=== PATIENT | female | born 1960 | race African-American/Black ===

== ENCOUNTER 2020-06-21 11:05 | Emergency (ER) | payer OTHER, SELFPAY ==
[2020-06-21 11:07] VITALS: BP 131/77; PULSE 56; RESP 18; TEMP 36.6; O2SAT 99
--- NOTE | 2020-06-21 11:31 | CT_ITS ---
STUDY: CT ABDOMEN AND PELVIS WITH CONTRAST REASON FOR EXAM: Female, 60 years old. LT FLANK PAIN -- RECENT DX COVID--NO LONGER QUARANTENED RADIATION DOSAGE (If Supplied By Facility): CTDIvol = ( 17.80 ) mGy, DLP = ( 931.14 ) mGycm TECHNIQUE: Transaxial images were obtained from the dome of the diaphragm to the symphysis pubis without oral contrast. IV 100mL Isovue-300 was administered. Sagittal and coronal images were reconstructed. Individualized dose optimization techniques were used for this CT. COMPARISON: None. FINDINGS: Minimal degree of the dependent bibasilar atelectasis. The visualized portions of the heart are within normal limits. Findings suggestive of an 8.7 mm hemangioma in the inferior aspect of the right lobe of the liver. Normal gallbladder and extrahepatic biliary system. Normal spleen. Normal pancreas. Normal bilateral adrenal glands. Normal right kidney. Normal left kidney. Normal visualized stomach. Normal small intestine. Diffuse colonic diverticulosis. The appendix is visualized and appears normal. Normal abdominal aorta. Normal inferior vena cava. There is borderline retroperitoneal lymphadenopathy with enlarged nodes no greater than 10mm in the short axis diameter. Normal urinary bladder. There is absence of the uterus consistent with a prior hysterectomy. Small bilateral inguinal hernias containing fat. Normal osseous structures. CT/Abdomen/Pelvis W IV Cont ONLY IMPRESSION: Diffuse colonic diverticulosis. Electronically Signed: Ghanshyam Kimbrough, at 12:41 EST , Service support ,
--- NOTE | 2020-06-21 11:32 | ED.VIS.GEN ---
History of Present Illness Chief Complaint: Flank Pain Informant: Patient Narrative: Patient presents the emergency room for the evaluation of left flank pain. Symptoms began gradually on Wednesday. She notes frequent urination. No dysuria. She does note a history of kidney stones but 20 years ago. No fevers. No vomiting. She is unable to find a position of comfort. She denies any rashes in the area. She states her bowel movements have been regular. - Past Medical History (1) Hypertension Status: Chronic Past Medical History - Allergies and Home Meds Allergies/Adverse Reactions: Allergies No Known Allergies Allergy (Verified 06/21/20 11:53) Primary Care Physician: Hakeem Ramirez MD [NON-STAFF] - 3-5 Days Past Medical History: - - Hypertension Surgical History: hysterectomy Smoking Status: Never smoker Drugs: None - Family History Maternal Family History: Reports: Diabetes, Heart Disease, Hypertension Review of Systems General: Denies: Chills, Fever, Sweats Eyes: Denies: Visual changes - bilaterally, Diplopia ENT: Denies: Rhinorrhea, Sore throat Cardiovascular: Denies: Chest pain, Palpitations Respiratory: Denies: Dyspnea, Cough, Dyspnea on exertion Gastrointestinal: Denies: Abdominal pain, Nausea, Vomiting, Diarrhea, Melena, Hematochezia Genitourinary: Reports: Frequency. Denies: Dysuria, Hematuria Musculoskeletal: Reports: - - Left flank pain. Denies: Back pain, Extremity Pain Skin: Denies: Rash, Wounds Neurological: Denies: Headache, Weakness, Numbness Physical Exam Vital Signs/Narrative: Vital Signs Temp Pulse Resp BP Pulse Ox 06/21/20 11:07 97.8 F 56 L 18 131/77 H 99 Inital Vital Signs reviewed: Yes General: Well nourished, Well developed, No Acute Distress Head: Normocephalic, Atraumatic Eyes: Perrl, EOMI ENT: Moist mucous membranes, No rhinorrhea Neck: Supple, Nontender Cardiovascular: Regular rate, Regular rhythm, No murmurs Respiratory: No distress, CTA bilaterally, Chest nontender Abdomen: Soft, Nontender, Nondistended, Normal bowel sounds Back: CVA tenderness - Left sided Extremities: Nontender, No edema Skin: Normal color, No rash Neurological: Alert, Oriented x3, Cranial nerves II-XII grossly intact, Normal Strength, Normal Sensation Psychological: Normal affect, Normal Mood Diagnostic/Tx/Re-eval Laboratory Last Values WBC 7.4 K/mm3 (4.4-11.0) 06/21/20 11:40 RBC 5.99 M/mm3 (4.2-5.4) H 06/21/20 11:40 Hgb 15.2 g/dL (12.0-15.0) H 06/21/20 11:40 Hct 48.9 % (37-47) H 06/21/20 11:40 MCV 81.6 fL (81-99) 06/21/20 11:40 MCH 25.4 pg (27.0-32.0) L 06/21/20 11:40 MCHC 31.1 g/dL (32-36) L 06/21/20 11:40 RDW Std Deviation 42.1 fl (35.1-43.9) 06/21/20 11:40 RDW Coeff of Amelia 14.2 % (11.6-14.6) 06/21/20 11:40 Plt Count 257 K/mm3 (150-450) 06/21/20 11:40 MPV 10.7 fl (6.2-12.0) 06/21/20 11:40 Immature Gran % (Auto) 0.500 % (0.0-0.9) 06/21/20 11:40 Neut % (Auto) 39.7 % (47-70) L 06/21/20 11:40 Lymph % (Auto) 52.1 % (19-41) H 06/21/20 11:40 [place] % (Auto) 6.0 % (0-10) 06/21/20 11:40 Eos % (Auto) 1.2 % (0-5) 06/21/20 11:40 Baso % (Auto) 0.5 % (0-1) 06/21/20 11:40 Absolute Neuts (auto) 2.9 X10^3/uL (2.0-7.7) 06/21/20 11:40 Absolute Lymphs (auto) 3.85 X10^3/uL (0.83-4.51) 06/21/20 11:40 Nucleated RBC % 0 % (0-5) 06/21/20 11:40 Sodium 141 mmol/L (136-145) 06/21/20 11:40 Potassium 3.8 mmol/L (3.5-5.1) 06/21/20 11:40 Chloride 106 mmol/L (98-107) 06/21/20 11:40 Carbon Dioxide 31.0 mmol/L (21.0-32.0) 06/21/20 11:40 Anion Gap 4 (5-15) L 06/21/20 11:40 BUN 21 mg/dL (7-18) H 06/21/20 11:40 Creatinine 1.14 mg/dL (0.55-1.02) H 06/21/20 11:40 Estim Creat Clear Calc 44.75 ml/min 06/21/20 11:40 Est GFR (MDRD) Af Amer 62 mL/min (>60) 06/21/20 11:40 Est GFR (MDRD) Non-Af 52 mL/min (>60) L 06/21/20 11:40 BUN/Creatinine Ratio 18.4 RATIO (10-20) 06/21/20 11:40 Glucose 107 mg/dL (74-106) H 06/21/20 11:40 Calcium 9.4 mg/dL (8.5-10.1) 06/21/20 11:40 Total Bilirubin 0.30 mg/dL (0.20-1.00) 06/21/20 11:40 AST 19 U/L (15-37) 06/21/20 11:40 ALT 43 U/L (13-56) 06/21/20 11:40 Alkaline Phosphatase 100 U/L (45-117) 06/21/20 11:40 Total Protein 7.8 g/dL (6.4-8.2) 06/21/20 11:40 Albumin 3.9 g/dL (3.2-5.0) 06/21/20 11:40 Globulin 3.9 g/dL (2.2-4.2) 06/21/20 11:40 Albumin/Globulin Ratio 1.0 RATIO (0.9-2.4) 06/21/20 11:40 Urine Color Yellow (Yellow) 06/21/20 11:40 Urine Clarity Clear (Clear) 06/21/20 11:40 Urine pH 6.5 (5.0 - 8.0) 06/21/20 11:40 Ur Specific Rake 1.015 (1.002-1.030) 06/21/20 11:40 Urine Protein 15 mg/dl (Negative) H 06/21/20 11:40 Urine Glucose (UA) Normal mg/dl (Normal) 06/21/20 11:40 Urine Ketones 5 mg/dl (Negative) H 06/21/20 11:40 Urine Occult Blood Negative /ul (Negative) 06/21/20 11:40 Urine Nitrite Negative (Negative) 06/21/20 11:40 Urine Bilirubin Negative mg/dL (Negative) 06/21/20 11:40 Urine Urobilinogen 1 mg/dl (Normal) H 06/21/20 11:40 Ur Leukocyte Esterase 25 /ul (Negative) H 06/21/20 11:40 Urine RBC 0 SEEN /hpf (0-5) 06/21/20 11:40 Urine WBC 0 SEEN /hpf (0-5) 06/21/20 11:40 Ur Squamous Epith Cells 0 SEEN /hpf (5-10) 06/21/20 11:40 Urine Bacteria RARE /hpf (None Seen) 06/21/20 11:40 Urine Mucus 0 SEEN /hpf (<or=2+) 06/21/20 11:40 Clinical Impression(s) from Imaging Studies Abdomen/Pelvis CT 06/21/20 11:31 IMPRESSION: Diffuse colonic diverticulosis. Electronically Signed: Ghanshyam Kimbrough, at 12:41 EST , Service support , - Medical Decision Making IV was established and the patient received morphine Toradol and Zofran. White count is normal. There is no evidence of urinary infection or hematuria. CT of the pelvis does not demonstrate any hydronephroureter. There is no perinephric stranding. No evidence of kidney stone or renal infarct. She does have diffuse colonic diverticulosis. The results of her testing were discussed with the patient at the bedside and all questions the patient had at the time were answered.. I do not have a clear etiology for the source of her pain however I do not see any emergent cause at this time. I write for the patient to have pain medication and muscle relaxants at home. She is to follow-up with primary care at the beginning of next week. Return if worsening or concerns. ED Disposition - Plan for ED Patient: Disposition: Home or Assisted Living Diagnosis: Acute left flank pain Instructions: ED Flank Pain Uncertain Cause Prescriptions: Oxycodone HCl/Acetaminophen [Percocet 5/325] 1 tab PO Q6H PRN PRN 3 Days #12 tab PRN Reason: Pain Prescription Printed Diazepam [Valium] 5 mg PO Q8 PRN #9 tab PRN Reason: Muscle Spasm Prescription Printed Referrals: Hakeem Ramirez MD [NON-STAFF] - 3-5 Days
[2020-06-21 11:51] LABS: Mucous, Urine 0 SEEN /hpf (<or=2+); Red Blood Cells-Urine 0 SEEN /hpf (0-5); Squamous Epithelial Cells - UA 0 SEEN /hpf (5-10); White Blood Cells 0 SEEN /hpf (0-5)
[2020-06-21 11:52] LABS: Absolute Lymphocyte Count 3.85 X10^3/uL (0.83-4.51); Absolute Neutrophil Count 2.9 X10^3/uL (2.0-7.7); Basophil# 0.04 X10^3/uL; Basophil% 0.5 % (0-1); Eosinophil# 0.09 X10^3/uL; Eosinophils% 1.2 % (0-5); Hematocrit 48.9 % (37-47); Hemoglobin 15.2 g/dL (12.0-15.0); Lymphocyte # 3.85 X10^3/ul (4.0); Lymphocyte % 52.1 % (19-41); Mean Corp Hgb Conc 31.1 g/dL (32-36); Mean Corpuscular Hgb 25.4 pg (27.0-32.0); Mean Corpuscular Volume 81.6 fL (81-99); Mean Platelet Vol. 10.7 fl (6.2-12.0); Monocyte# 0.44 X10^3/uL; NRBC Flagged by Analyzer 0 % (0-5); Neutrophil # 2.93 X10^3/uL (2.7-7.7); Neutrophil % 39.7 % (47-70); Platelet Count 257 K/mm3 (150-450); RBC Distribution Width CV 14.2 % (11.6-14.6); RBC Distribution Width SD 42.1 fl (35.1-43.9); Red Blood Count 5.99 M/mm3 (4.2-5.4); White Blood Count 7.4 K/mm3 (4.4-11.0)
[2020-06-21] MEDS: Ondansetron 4 MG/2 ML Vial IV (11:52)
[2020-06-21 11:53] LABS: Color, Urine Yellow (Yellow); Glucose, Dipstick Normal (Normal); Ketone-Dipstick 5 mg/dl (Negative); Leukocyte Esterase-Dipstick 25 /ul (Negative); Nitrite-Dipstick Negative (Negative); Occult Blood-Urine Negative /ul (Negative); Protein-Dipstick 15 mg/dl (Negative); Specific Gravity, Urine 1.015 (1.002-1.030); Urine Bilirubin Dipstick Negative (Negative); Urine Clarity Clear (Clear); Urine Urobilinogen 1 mg/dl (Normal); Urine pH 6.5 (5.0 - 8.0)
[2020-06-21] MEDS: Ketorolac 30 MG/ML Syringe IV (11:53)
[2020-06-21] MEDS: Morphine 4 MG/ML Syringe IV (11:55)
[2020-06-21] MEDS: 0.9% Normal Saline 1,000 ML 1000 ML IV (11:57)
[2020-06-21 12:00] LABS: Bacteria RARE /hpf (None Seen)
[2020-06-21 12:08] LABS: AST(SGOT) 19 U/L (15-37); Alanine Aminotransfer ALT/SGPT 43 U/L (13-56); Albumin, Serum 3.9 g/dL (3.2-5.0); Alkaline Phosphatase 100 U/L (45-117); Anion Gap 4 (5-15); BUN 21 mg/dL (7-18); BUN/Creat Ratio 18.4 RATIO (10-20); Calcium,Total 9.4 mg/dL (8.5-10.1); Chloride 106 mmol/L (98-107); Creatinine, Serum 1.14 mg/dL (0.55-1.02); EST Glomerular Filtration Rate 52 mL/min (>60); Est Glom Filt Rate - Afr Amer 62 mL/min (>60); Estimated Creatinine Clearance 44.75 ml/min; Globulin 3.9 g/dL (2.2-4.2); Glucose 107 mg/dL (74-106); Potassium 3.8 mmol/L (3.5-5.1); Protein, Total 7.8 g/dL (6.4-8.2); Sodium Level 141 mmol/L (136-145)
[2020-06-21 13:51] VITALS: BP 113/57; PULSE 64; RESP 18; O2SAT 97
== END 2020-06-21 13:52 | disposition home or self-care (01) ==
PROVIDERS: Emergency Provider Emergency Medicine; PCP Family Medicine
DX: R10.9 Unspecified abdominal pain (principal); K57.30 Diverticulosis of large intestine without perforation or abscess without bleeding; Z87.442 Personal history of urinary calculi; I10 Essential (primary) hypertension; Z79.899 Other long term (current) drug therapy
CPT/HCPCS: 74177; 80053; 81001; 85025; 96361; 96374; 96375; 99283; J7030; Q9967; A4216; J2405

== ENCOUNTER 2021-04-10 12:07 | Emergency (ER) | payer OTHER, SELFPAY ==
[2021-04-10 12:07] VITALS: BP 152/102; PULSE 80; RESP 20; TEMP 36.8; BMI 31.7
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
[2021-04-10] MEDS: HYDROcodone Bitartrate/Apap 5/325 Tablet PO (14:23)
--- NOTE | 2021-04-10 14:32 | CT_ITS ---
STUDY: CT CERVICAL SPINE WITHOUT CONTRAST REASON FOR EXAM: Female, 61 years old. Injury/Pain RADIATION DOSAGE (If Supplied By Facility): CTDIvol = ( 25.03 ) mGy, DLP = ( 532.96 ) mGycm TECHNIQUE: High resolution transaxial imaging was performed without contrast material. Sagittal and coronal images were reconstructed. Individualized dose optimization techniques were used for this CT. COMPARISON: None FINDINGS: Normal craniovertebral junction. There are degenerative changes of the anterior atlantoaxial articulation. Normal odontoid process. There is loss of the normal cervical lordosis. There is multilevel facet hypertrophy. C2-3: There is endplate spondylosis. Normal central canal and intervertebral neuroforamina. C3-4: There is a posterior disc osteophyte facet hypertrophy associated with narrowing of the right intervertebral neuroforamina. C4-5: There is a posterior disc osteophyte associated with stenosis of the central canal and bilateral narrowing of the intervertebral neuroforamina. C5-6: There is a posterior disc osteophyte associated with stenosis of the central canal and bilateral narrowing of the intervertebral neuroforamina. C6-7: There is a posterior disc osteophyte associated with stenosis of the central canal and narrowing of the right intervertebral neuroforamina. C7-T1: There is endplate spondylosis. Normal central canal and intervertebral neuroforamina. 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 CT/Spine Cervical without Contras IMPRESSION: Multilevel degenerative changes, as described above. Electronically Signed: Lima Hernández MD at 15:15 EDT Tel , Service support ,
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
[2021-04-10] MEDS: Ibuprofen 200 MG Tablet 800 MG PO (15:58)
[2021-04-10 16:09] VITALS: RESP 18
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
[2021-04-10 16:27] VITALS: PULSE 65; RESP 17; O2SAT 95
== END 2021-04-10 16:27 | disposition home or self-care (01) ==
PROVIDERS: Emergency Provider Emergency Medicine; PCP Family Medicine
DX: S16.1XXA Strain of muscle, fascia and tendon at neck level, initial encounter (principal); S40.021A Contusion of right upper arm, initial encounter; I10 Essential (primary) hypertension; E03.9 Hypothyroidism, unspecified; Z79.899 Other long term (current) drug therapy; V43.52XA Car driver injured in collision with other type car in traffic accident, initial encounter; Y93.I9 Activity, other involving external motion; Y92.410 Unspecified street and highway as the place of occurrence of the external cause; Y99.8 Other external cause status
CPT/HCPCS: 72125; 73030; 73060; 99283

== ENCOUNTER 2021-12-15 19:50 | Emergency (ER) | payer OTHER, SELFPAY ==
[2021-12-15 19:51] VITALS: BP 185/102; PULSE 66; RESP 15; TEMP 36.4; O2SAT 98; BMI 30.9
--- NOTE | 2021-12-15 21:33 | EX.ED.DYSGE1 ---
HPI History of Present Illness Chief Complaint: Ear Problem Informant: patient Onset/Context/Timing Onset: Today Narrative Narrative: Patient presents due to concern for foreign body in her right ear. Patient believes that part of her hearing aid broke off inside her ear canal. [facility] Medical History Hypertension Hypothyroidism Home Medications atenolol [Tenormin] 25 mg PO DAILY 02/10/16 [History Last Taken Unknown] cholecalciferol (vitamin D3) [Vitamin D3] 50 mcg PO DAILY 04/10/21 [History Last Taken Unknown] hydrochlorothiazide 25 mg tablet 25 mg PO tab 04/18/21 [History Last Taken Unknown] lansoprazole 30 mg capsule,delayed release 30 mg PO cap 04/18/21 [History Last Taken Unknown] lisinopril 10 mg tablet 10 mg PO tab 04/18/21 [History Last Taken Unknown] multivitamin with folic acid 400 mcg tablet 1 tab PO tab 04/18/21 [History Last Taken Unknown] tizanidine 2 mg capsule 2 mg PO Q8H PRN #20 cap 04/18/21 [Rx Last Taken Unknown] Allergy/AdvReac Type Severity Reaction Status Date / Time No Known Allergies Allergy Verified 05/23/21 09:53 Social History Smoking Status: Never smoker ROS ROS ED Constitutional Constitutional ED: Denies chills or fever(s) Eyes Eyes: Denies change in vision ENT ENT ED: Reports ear pain right; Denies sore throat Cardiovascular Cardiovascular: Denies chest pain Respiratory/Chest Respiratory/Chest: Denies cough or dyspnea Gastrointestinal Gastrointestinal: Denies abdominal pain, nausea or vomiting Genitourinary Genitourinary ED: Denies dysuria Musculoskeletal Musculoskeletal: Denies back pain Integumentary Denies rash Neurologic Neurologic: Denies headache(s) Allergic/Immunologic Allergic/Immunologic ED: Denies urticaria EXAM Physical Exam Const Vital Signs: 12/15/21 19:51 Temperature 97.5 F L Temperature Source Temporal Pulse Rate 66 Respiratory Rate 15 Blood Pressure 185/102 H Blood Pressure Mean 129 Pulse Ox 98 Oxygen Delivery Method Room Air Positive well nourished and well developed General Appearance ED: well developed HEENT Reports moist mucous membranes HEENT Narrative: Foreign body noted along the inferior wall of the right ear canal. Eyes PERRL and EOMs intact bilaterally Neck supple Chest Wall inspection of chest normal and palpation of chest normal Resp normal respiratory effort and clear to auscultation bilaterally Cardio regular rate and regular rhythm Extremity normal to inspection Neuro oriented x3 Sensorium / Orientation: alert Psych mental status grossly normal Skin no rashes or lesions noted MDM [facility] Treatment and Re-Evaluation Narrative: Paperclip was used to remove the foreign body from the right ear canal. Repeat examination reveals no remaining foreign body with normal TM. Discharge Plan Triage Chief Complaint: Ear Problem ED Provider: Chasidy Sarah Dx/Rx/DC Orders Clinical Impression: Foreign body of right ear Instructions: ED Foreign Body, Ear Canal (Removed) Prescriptions: No Action lisinopril 10 mg tablet 10 mg PO RF: 0 hydrochlorothiazide 25 mg tablet 25 mg PO RF: 0 multivitamin with folic acid 400 mcg tablet 1 tab PO RF: 0 lansoprazole 30 mg capsule,delayed release(DR/EC) 30 mg PO RF: 0 tizanidine 2 mg capsule 2 mg PO Q8H PRN (Reason: muscle spasticity) Qty: 20 RF: 0 atenolol [Tenormin] 25 MG tablet 25 mg PO DAILY RF: 0 cholecalciferol (vitamin D3) [Vitamin D3] 50 mcg (2,000 unit) Capsule 50 mcg PO DAILY RF: 0 Primary Care Provider: Hakeem Fontana Referrals: Hakeem Fontana MD [Primary Care Provider] - As Needed Disposition Disposition: Home, Self Care Discharge Date/Time: 12/15/21 21:39
== END 2021-12-15 21:39 | disposition home or self-care (01) ==
PROVIDERS: Emergency Provider Emergency Medicine; PCP Family Medicine; Visit Provider Emergency Medicine
DX: T16.1XXA Foreign body in right ear, initial encounter (principal); I10 Essential (primary) hypertension; E03.9 Hypothyroidism, unspecified; Z79.899 Other long term (current) drug therapy
CPT/HCPCS: 69200; 99282

== ENCOUNTER 2025-05-31 18:36 | Emergency (ER) | payer SELFPAY ==
[2025-05-31] VITALS (7 sets, daily range): BP systolic 153–163; BP diastolic 78–101; PULSE 62–84; RESP 16–21; TEMP 36.7–36.8; O2SAT 96–99; BMI 34.6
[2025-05-31 19:17] LABS: Hematocrit 43.0 % (37-47); Hemoglobin 13.7 g/dL (12.0-15.0); Immature Granulocytes Count 0.010 X10^3/uL (0.0-0.0); Mean Corp Hgb Conc 31.9 g/dL (32-36); Mean Corpuscular Volume 79.0 fL (81-99); Mean Platelet Vol. 11.3 fl (6.2-12.0); NRBC Flagged by Analyzer 0 % (0-5); POSITIVE DIFFERENTIAL YES; Platelet Count 248 K/mm3 (150-450); RBC Distribution Width CV 14.6 % (11.6-14.6); RBC Distribution Width SD 41.6 fl (35.1-43.9); Red Blood Count 5.44 M/mm3 (4.2-5.4); White Blood Count 9.4 K/mm3 (4.4-11.0)
[2025-05-31 19:23] LABS: Differential Indicated SCAN CRITERIA MET
[2025-05-31 19:29] LABS: Mucous, Urine 0 SEEN /hpf (<or=2+); Red Blood Cells-Urine 0 SEEN /hpf (0-5); Squamous Epithelial Cells - UA 0 SEEN /hpf (5-10)
[2025-05-31 19:41] LABS: Color, Urine Yellow (Yellow); Glucose, Dipstick Normal (Normal); Ketone-Dipstick Negative (Negative); Leukocyte Esterase-Dipstick Negative /ul (Negative); Nitrite-Dipstick Negative (Negative); Occult Blood-Urine Negative /ul (Negative); Protein-Dipstick Negative (Negative); Specific Gravity, Urine 1.015 (1.002-1.030); Urine Bilirubin Dipstick Negative (Negative)
[2025-05-31 19:54] LABS: Anion Gap 12 (5-15); BUN 14 mg/dL (4-19); BUN/Creat Ratio 17.3 RATIO (10-20); Calcium,Total 8.9 mg/dL (7.6-11.0); Carbon Dioxide 20.3 mmol/L (21.0-32.0); Chloride 108 mmol/L (98-108); Estimated Creatinine Clearance 73.07 ml/min (50-250); Glucose 129 mg/dL (70-99); Potassium 4.2 mmol/L (3.3-5.1)
[2025-05-31 20:06] LABS: Differential Comment SCANNED
[2025-05-31 20:10] LABS: Troponin T High Sensitivity 7 ng/L (<=14)
[2025-05-31 21:25] LABS: Troponin T High Sens 2 HR 8 ng/L (<=14)
== END 2025-05-31 22:30 | disposition home or self-care (01) ==
PROVIDERS: Emergency Provider Emergency Medicine; PCP Family Medicine; Visit Provider Emergency Medicine
DX: I10 Essential (primary) hypertension (principal); E03.9 Hypothyroidism, unspecified; Z91.148 Patient's other noncompliance with medication regimen for other reason; Z91.119 Patient's noncompliance with dietary regimen due to unspecified reason; Z79.890 Hormone replacement therapy; Z79.899 Other long term (current) drug therapy
CPT/HCPCS: 71046; 80048; 81001; 84443; 84484; 85025; 93005; 99285; A4216

== ENCOUNTER 2025-06-26 13:37 | Emergency (ER) | payer OTHER, SELFPAY ==
[2025-06-26 13:37] VITALS: BP 169/96; PULSE 66; RESP 18; TEMP 36.6; O2SAT 99; BMI 32.3
[2025-06-26 14:07] VITALS: BP 183/97; PULSE 68; RESP 15; O2SAT 98
[2025-06-26 14:21] VITALS: BP 156/90; PULSE 70; RESP 15; O2SAT 97
[2025-06-26 14:45] VITALS: BP 166/86; PULSE 67; O2SAT 96
[2025-06-26 15:00] VITALS: BP 175/94; PULSE 68; O2SAT 99
--- NOTE | 2025-06-26 15:04 | EX.ED.DYSGE1 ---
HPI History of Present Illness Chief Complaint: Hypertension Informant: patient Narrative Narrative: Patient is a 65-year-old female with history of hypertension presenting with elevated blood pressure reading. She also is a history of hypothyroidism. [facility] Was recently started on lisinopril/HCTZ which she has been taking consistently but not at the same time every day. Notes she did take it today. She had an appointment and her friend offered to check her blood pressure with a portable blood pressure cuff. Blood pressure was 202/120. Her friend then gave her 10 mg of amlodipine. She took that approximately 1210. Came in for further evaluation of this. Patient states she is actually feeling well. Denies any head pressure. Denies any chest pain, leg swelling or other complaints. Only came in at her friend's and symptoms because of how low blood pressure was. Her next appointment at her clinic is on July 11. [facility] Medical History Hypothyroidism Hypertension Home Medications ?Medication ?Instructions ?Recorded ?Last Taken ?Type cholecalciferol (vitamin D3) 50 50 mcg PO DAILY 04/10/21 Unknown History mcg (2,000 unit) capsule (Vitamin D3) levothyroxine 75 mcg capsule 75 mcg PO DAILY #30 caps 05/31/25 Unknown Rx amlodipine 5 mg tablet (Norvasc) 5 mg PO DAILY #30 tabs 06/26/25 Unknown Rx lisinopril 20 1 tab PO DAILY 06/26/25 Unknown History mg-hydrochlorothiazide 12.5 mg tablet Allergy/AdvReac Type Severity Reaction Status Date / Time No Known Allergies Allergy Verified 06/26/25 13:40 Social History Smoking Status: Never smoker ROS ROS ED Constitutional Constitutional ED: Denies chills or fever(s) Eyes Eyes: Denies blurry vision or change in vision Cardiovascular Cardiovascular: Denies chest pain Respiratory/Chest Respiratory/Chest: Reports cough; Denies dyspnea Gastrointestinal Gastrointestinal: Denies abdominal pain, nausea or vomiting Genitourinary Genitourinary ED: Denies dysuria Musculoskeletal Musculoskeletal: Denies arthralgias or myalgias Integumentary Denies rash Neurologic Neurologic: Denies headache(s), paresthesias or weakness Psychiatric Psychiatric: Denies anxiety Hematologic/Lymphatic Hematologic/Lymphatic: Denies easy bleeding EXAM Physical Exam Const Vital Signs: 06/26/25 13:37 06/26/25 14:07 06/26/25 14:07 Temperature 98 F Temperature Source Oral Pulse Rate 66 68 Respiratory Rate 18 15 Respiratory Effort Normal Respiratory Pattern Normal Blood Pressure 169/96 H 183/97 H Blood Pressure Mean 120 125 Pulse Ox 99 98 Oxygen Delivery Method Room Air Room Air 06/26/25 14:21 06/26/25 14:45 06/26/25 15:00 Temperature Temperature Source Pulse Rate 70 67 68 Respiratory Rate 15 Respiratory Effort Respiratory Pattern Blood Pressure 156/90 H 166/86 H 175/94 H Blood Pressure Mean 112 112 121 Pulse Ox 97 96 99 Oxygen Delivery Method Room Air 06/26/25 15:10 Temperature 98 F Temperature Source Pulse Rate 68 Respiratory Rate 15 Respiratory Effort Respiratory Pattern Blood Pressure 175/94 H Blood Pressure Mean 121 Pulse Ox 99 Oxygen Delivery Method Positive well nourished and well developed General Appearance ED: well developed and NAD HEENT Reports moist mucous membranes HEENT Narrative: hearing aids in place. Clear oropharynx Eyes PERRL Neck supple and no JVD Chest Wall inspection of chest normal Resp normal respiratory effort and clear to auscultation bilaterally Cardio regular rate and regular rhythm GI normal to inspection, nondistended, normoactive bowel sounds and non-tender Extremity normal to inspection General Extremety ED: Negative for edema General Extremity: Negative for edema Neuro oriented x3 and no sensory deficits noted Neuro Narrative: Steady gait Sensorium / Orientation: alert Motor Exam: strength 5/5 throughout; Negative for general weakness Psych mental status grossly normal Skin no rashes or lesions noted and no wounds MDM MDM MDM Narrative Medical decision making narrative: Patient valuated for elevated blood pressure reading with history of hypertension. She is completely asymptomatic. Was started on lisinopril/HCTZ a couple weeks ago and states has been compliant but is not Nestl? been taking at the same time every day. States she will work on this. Blood pressure downtrending in the ER but significantly down from her outpatient reading. Given that she is asymptomatic I do not think she requires hypertensive workup at this time as I do not suspect hypertensive emergency or accelerated hypertension. She did take 10 mg of amlodipine prior to arrival so it is possible that there could be improving her blood pressure at all. Discussed keeping a blood pressure log and starting her on 5 mg of amlodipine in addition to her lisinopril/HCTZ. She will follow-up outpatient with her primary care doctor in 2 weeks as already scheduled. Counseled on signs and symptoms of a hypertensive emergency return precautions. Discharged home in stable condition. Discharge Plan Triage Chief Complaint: Hypertension ED Provider: Tiffany Lopez Dx/Rx/DC Orders Clinical Impression: Hypertension Instructions: ED High Blood Pressure Hypertension Prescriptions: New amlodipine [Norvasc] 5 mg tablet 5 mg PO DAILY Qty: 30 0RF No Action cholecalciferol (vitamin D3) [Vitamin D3] 50 mcg (2,000 unit) Capsule 50 mcg PO DAILY levothyroxine 75 mcg capsule 75 mcg PO DAILY Qty: 30 0RF lisinopril-hydrochlorothiazide 20-12.5 mg tablet 1 tab PO DAILY Primary Care Provider: Dylan Dahl Referrals: Dylan Dahl PA [Primary Care Provider, Medical] Activity Restrictions/Additional Instructions: Please follow-up outpatient at your next family medicine appointments as scheduled July 11 per discussion. Check your blood pressure once a day or couple times a week and keep a log of this. If you start to feel lightheaded or your blood pressure is going below 120 for the top number you can hold the Norvasc (amlodipine). Continue to take your regular prescribed lisinopril/HCTZ as well. You may return to work. Print Language: Honduran Disposition Disposition: Home, Self Care Discharge Date/Time: 06/26/25 15:17
[2025-06-26 15:10] VITALS: BP 175/94; PULSE 68; RESP 15; TEMP 36.6; O2SAT 99
== END 2025-06-26 15:17 | disposition home or self-care (01) ==
PROVIDERS: Emergency Provider Emergency Medicine; PCP Physician Assistant; Visit Provider Emergency Medicine
DX: I10 Essential (primary) hypertension (principal); E03.9 Hypothyroidism, unspecified; Z79.899 Other long term (current) drug therapy
CPT/HCPCS: 99282